=== PATIENT | female | born 1955 | race African-American/Black ===

== ENCOUNTER 2018-12-06 13:54 | Inpatient (IN) | payer OTHER, MEDICAID ==
[2018-12-06] MEDS ORDERED: DIAZEPAM 10 MG/2 ML SYR IVP ONE (14:29)
[2018-12-06] MEDS ORDERED: KETOROLAC 15 MG/1 ML SDV IVP ONE (14:29)
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
[2018-12-06 14:42] LABS: PLATELET COUNT 292 10^3/uL (150-400)
[2018-12-06] MEDS ORDERED: HYDROmorphONE/DILAUDID 2 MG/ML INJ IVP ONE ×2 (16:16→18:56)
[2018-12-06] MEDS ORDERED: DEXAMETHASONE 10 MG/ML VIAL IVP ONE (17:19)
--- NOTE | 2018-12-06 18:04 | SOAPPROG ---
SOAP Progress Note Assessment/Plan: Assessment: 62 yo F with back pain, right leg pain, right leg weakness and urinary incontinence. Plan: Full consult dictated MRI lumbar spine with severe T10/11 stenosis and multilevel lumbar stenosis will make her npo at midnight ordering MRI of thoracic spine w/o contrast will discuss with patient in am but she will likely need decompression surgery please call with neuro changes 12/06/18 18:01 Subjective: consult dictated. Objective: Vital Signs Temp Pulse Resp BP Pulse Ox 36.8 C 71 16 129/81 H 97 12/06/18 17:39 12/06/18 17:39 12/06/18 17:39 12/06/18 17:39 12/06/18 17:39 AAOX4, +FC PERRL, EOMI, no facial droop 5/5 + light touch ICD10 Worksheet Patient Problems: Problems Problem Status Onset Acute back pain with sciatica Acute
[2018-12-06] MEDS ORDERED: ONDANSETRON DISINTEGRATING 4 MG TAB PO PRN (18:56)
--- NOTE | 2018-12-06 18:56 | GCON ---
[f rep st] CONSULTATION NEUROSURGICAL CONSULTATION CHIEF COMPLAINT: Low back pain, leg weakness, and incontinence. HISTORY OF PRESENT ILLNESS: The patient is a 62-year-old female known to our practice for previous cervical and thoracic fusion by Dr. Grimes in approximately 2016. She did have some low back pain and leg symptoms that were previously thought to be related to underlying lumbar stenosis symptoms. Her symptoms were improving with a course of conservative care. Approximately a week ago, she noticed some increased weight gain. This was then associated with worsening low back pain, pain in the right leg, general weakness in the right leg, as well as urinary leakage. She describes when she stands, she feels a fullness in her abdomen and has urinary leakage with some incontinence. She is not having left leg pain. She has tried some pain medications and anti -inflammatory medications with no improvement of her symptoms. PAST MEDICAL HISTORY: 1. Diabetes. 2. Lumbar stenosis. PAST SURGICAL HISTORY: Includes: 1. Previous cervical fusion. 2. Previous thoracic fusion. MEDICATIONS: Prior to admission, please see medication list. ALLERGIES: Sulfa. FAMILY HISTORY: Patient has no family history of spinal problems. SOCIAL HISTORY: The patient has grown children and lives in [place]. She denies smoking or drug use. REVIEW OF SYSTEMS: Negative. PHYSICAL EXAM: GENERAL: Patient is a 62-year-old female lying in the MRI machine, in no apparent distress. HEAD/EARS/NOSE/THROAT: Negative to drainage. EXTREMITIES: [place], warm, and dry. NEUROLOGIC: Patient is awake, alert, oriented x4. Pupils equal, round, reactive to light. Extraocular motions are intact. There is no evidence of facial droop. Tongue and uvula are midline. Spinal accessory muscles are intact. Her motor strength is 5/5 in her arms and legs. Her sensation is grossly intact to light touch in her arms and legs. Deep tendon reflexes are 1/4 in upper extremities, 3+ in patellar and +2/4 in achilles. There is a negative Silke's with no clonus. IMPRESSION: This is a 62-year-old female with low back pain, right lower extremity radicular pain, subjective weakness, and incontinence that may be related to underlying lumbar stenosis. She is currently neurologically intact. PLAN: All the above discussed in detail with the patient. This patient was seen with Dr. Castillo in MRI at [facility]. At this point time , we will have the patient complete the MRI of her lumbar spine without contrast. She will be admitted to the hospitalist overnight and be kept n.p.o. We will review her imaging studies in the morning and determine further recommendations, including whether or not she may require surgical intervention. Please call with any neurological changes. /[id number]/MODL MTDD
[2018-12-06] MEDS ORDERED: PROTOCOL POTASSIUM 1 DOSE MISC PRN (19:05)
[2018-12-06] MEDS ORDERED: POTASSIUM CL 20 MEQ PKT PO ONE (19:05)
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
[2018-12-06] MEDS: ONDANSETRON 4 MG/2 ML VIAL IVP PRN (20:07)
[2018-12-06] MEDS ORDERED: POTASSIUM CL 10 MEQ TAB PO ONE ×2 (22:03→22:15)
[2018-12-06] MEDS: GABAPENTIN 300 MG CAP PO SCH (22:13)
[2018-12-07] MEDS: HYDROmorphONE/DILAUDID 1 MG/ML INJ IVP PRN ×3 (07:22→22:17)
--- NOTE | 2018-12-07 07:54 | SOAPPROG ---
[facility] Progress Note Assessment/Plan: Assessment: 62 yo F with back pain, right leg pain, right leg weakness and urinary incontinence likely from T10/11 stenosis on thoracic MRI, also has stenosis at L2/3, L3/4 Plan: neuro: stable, discussed with patient that she will likely need T10/11 decompression and possible fusion MRI lumbar spine with severe T10/11 stenosis and multilevel lumbar stenosis keep npo for now will discuss with Dr Ochoa timing of surgery please call with neuro changes 12/06/18 18:01 12/07/18 07:52 Subjective: continued back pain and right leg pain. Pain in abdomen when upright. Urinary leakage with walking. Objective: Vital Signs Temp Pulse Resp BP Pulse Ox 36.6 C 80 16 127/72 H 96 12/07/18 03:57 12/07/18 03:57 12/07/18 03:57 12/07/18 03:57 12/07/18 03:57 Laboratory Results 12/07/18 05:10 12/06/18 12/07/18 12/08/18 05:59 05:59 05:59 Intake Total 300 Balance 300 AAOx4, + FC PERRL, EOMI, no facial droop 5/5 + light touch ICD10 Worksheet Patient Problems: Problems Problem Status Onset Acute back pain with sciatica Acute
[2018-12-07] MEDS: LISINOPRIL 20 MG TAB PO SCH (08:14)
[2018-12-07] MEDS: GABAPENTIN 300 MG CAP PO SCH ×2 (08:14→21:54)
[2018-12-07] MEDS: ATORVASTATIN CALCIUM 10 MG TAB PO SCH (08:15)
[2018-12-07] MEDS: CHLORTHALIDONE 25 MG TAB PO SCH (08:15)
[2018-12-07] MEDS: DIAZEPAM 5 MG TAB PO PRN (08:21)
[2018-12-07] MEDS: OXYCODONE/APAP 5/325 TAB PO PRN ×2 (08:21→18:00)
[2018-12-07] MEDS ORDERED: FAMOTIDINE 20 MG TAB PO PRN (09:00)
[2018-12-07] MEDS ORDERED: D5W 1,000 ML IV SCH (10:45)
--- NOTE | 2018-12-07 11:06 | ASMTCMCOM ---
CM Note CM Note Notes: Reviewed chart, pt admitted for severe lower back pain. She has a hx of chronic back pain and multiple surgeries. Pt is normally quite active despite this, clocking 6 thousand steps a day and going to [facility]. She is scheduled for surgery today, PT/OT birgit pending. DC Plan: TBD Date Signed: 12/07/2018 11:05 AM Electronically Signed By:Vidhya Qureshi RN
--- NOTE | 2018-12-07 11:13 | HOSPPROG ---
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 - Dr Ochoa to perform thoracic spine fusion today or tomorrow - will likely plan a second lumbar fusion in a few months - cont percocet and dilaudid for pain control # DM2 - she is very concerned her glucs will drop while NPO - start D5NS at 50/hr while NPO - holding glimepiride # htn - lisino, chlorthalidone Subjective: stioll with ongoing pain; we dsicussed her diabetes; I saw her with Dr Ochoa Objective: Vital Signs Temp Pulse Resp BP Pulse Ox 36.8 C 66 16 133/80 H 98 12/07/18 08:00 12/07/18 08:00 12/07/18 08:00 12/07/18 08:00 12/07/18 08:00 Laboratory Results 12/07/18 05:10 12/06/18 12/07/18 12/08/18 05:59 05:59 05:59 Intake Total 300 Balance 300 chart reviewed MRIs personally reviewed and discussed with Dr Ochoa - Physical Exam Constitutional: no apparent distress, appears nourished Cardiovascular: regular rate and rhythym, no murmur, rub, or gallop Respiratory: no respiratory distress, no rales or rhonchi, clear to auscultation Gastrointestinal: soft, non-tender abdomen, No guarding, No rebound, No distension ICD10 Worksheet Patient Problems: Problems Problem Status Onset Acute back pain with sciatica Acute
--- NOTE | 2018-12-07 11:36 | PDMN ---
Medical Necessity Medical necessity: [facility] M63 Back Pain, A-1 day; 62 yo w/ acute on chronic back pain w/ worsening BLE weakness, numbness and urinary incontinence. Imaging shows multi levels degenerative disease w/ acute on chronic disc herniations and cord edema/compression in lower thoracic spine. Neurosurg consult. PT/OT. Plan for thoracic spine fusion next 24 hours. IV dilaudid for pain control. Meets [facility] criteria for back pain w/ progressive or severe neurologic deficit, severe pain and immediate inpt surgery. Hx DM2, HTN, HLD, multi spinal surgeries
--- NOTE | 2018-12-07 11:39 | ASMTCMCOM ---
CM Note CM Note Notes: Met with pt, he has been given resources but not interested in any treatment. CM made an appointment at the [facility] next Wednesday at 10am for pt follow up. DC Plan: Independent Date Signed: 12/07/2018 11:37 AM Electronically Signed By:Vidhya Qureshi RN
[2018-12-07] MEDS ORDERED: ceFAZolin 2 GM/DEXTROSE 100 ML IV ONE ×2 (12:51→16:00)
[2018-12-07] MEDS ORDERED: NS 500 ML IV ONE (12:51)
[2018-12-07] MEDS ORDERED: morphINE PF 0.2 MG in SYRINGE INTRATHECAL 1 SYR IT ONE ×2 (12:51→17:00)
[2018-12-07] MEDS ORDERED: fentaNYL 50 MCG in SYRINGE INTRATHECAL 1 SYR IT ONE ×2 (12:51→17:00)
[2018-12-07] MEDS ORDERED: TRANEXAMIC ACID 1,000 MG in NS 100 ML IV ONE ×2 (12:51→17:00)
[2018-12-07] MEDS ORDERED: GABAPENTIN 300 MG CAP PO ONE ×2 (12:51→17:00)
[2018-12-07] MEDS ORDERED: ACETAMINOPHEN 500 MG TAB PO ONE ×2 (12:51→17:00)
[2018-12-07] MEDS: NS 1,000 ML IV SCH (21:56)
[2018-12-07] MEDS: BACLOFEN 10 MG TAB PO PRN (22:06)
[2018-12-08] MEDS ORDERED: POTASSIUM CL 10 MEQ TAB PO ONE ×2 (01:31→08:52)
[2018-12-08] MEDS: HYDROmorphONE/DILAUDID 1 MG/ML INJ IVP PRN ×5 (03:56→20:50)
--- NOTE | 2018-12-08 07:21 | PDHPUP ---
History & Physical Update H&P update statement: This history and physical update is based on an assessment of the patient which was completed after admission or registration (within 24 hours), but prior to the surgery/procedure. H&P update: H&P reviewed & patient examined, changes noted (will order cxr to ensure no pna prior to surgery today given chest congestion and cough)
--- NOTE | 2018-12-08 07:23 | NEUSURGPN ---
Assessment/Plan: Assessment: 62 yo F with back pain, right leg pain, right leg weakness and urinary incontinence likely from T10/11 stenosis on thoracic MRI, also has stenosis at L2/3, L3/4 Plan: neuro: stable, discussed with patient that she needs T10/11 decompression and possible fusion (exploration with removal of hardware T5-T9; T8-12 PSF with interbody cage at T10/T11 and T11/T12). Consents signed yesterday and on the chart MRI lumbar spine with severe T10/11 stenosis and multilevel lumbar stenosis keep npo for now CXR pending given patient complaints of cough and chest congestion, no fever reported please call with neuro changes Subjective: cough and chest congestion, no fever reported Objective: NAD A&Ox3 MAEx4 5/5 and equal in BLE Sensation intact to LT - Physician Discussed Patient with : [facility] Physical Exam - Vitals, I&O, Labs I and O 12/07/18 12/08/18 12/09/18 05:59 05:59 05:59 Intake Total 300 1300 Output Total 300 Balance 300 1300 -300 Weight 90.71 kg 90.71 kg Intake: Oral (ml) 300 550 IV Infused (ml) 750 Ns 1,000 ml @ 100 mls/hr 750 IV CONT HUE Rx#: [id number] Output: Urine (ml) 300 Toilet 300 Other: Intake Quantity Yes Sufficient Number of Voids Incontinence 1 Toilet 2 2 1 Vital Signs Temp Pulse Resp BP Pulse Ox 36.6 C 64 18 105/66 90 L 12/08/18 04:00 12/08/18 04:00 12/08/18 04:00 12/08/18 04:00 12/08/18 04:00 Laboratory Results 12/08/18 04:23 ICD10 Worksheet Patient Problems: Problems Problem Status Onset Acute back pain with sciatica Acute
[2018-12-08] MEDS: NS 1,000 ML IV SCH ×2 (08:40→20:16)
[2018-12-08] MEDS: CHLORTHALIDONE 25 MG TAB PO SCH (08:41)
[2018-12-08] MEDS: ATORVASTATIN CALCIUM 10 MG TAB PO SCH (08:41)
[2018-12-08] MEDS: LISINOPRIL 20 MG TAB PO SCH (08:41)
[2018-12-08] MEDS: GABAPENTIN 300 MG CAP PO SCH ×3 (09:20→23:39)
--- NOTE | 2018-12-08 10:10 | HOSPPROG ---
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 - Dr Ochoa to perform thoracic spine fusion today - will likely plan a second lumbar fusion in a few months - cont percocet and dilaudid for pain control # DM2 - holding glimepiride today # htn - lisino, chlorthalidone # cough/chest congestion - no pna on CXR - start mucinex, will need IS post-op Subjective: c/o chest congestion Objective: Vital Signs Temp Pulse Resp BP Pulse Ox 36.3 C 67 14 110/65 98 12/08/18 07:47 12/08/18 07:47 12/08/18 07:47 12/08/18 08:41 12/08/18 07:47 Laboratory Results 12/08/18 04:23 12/07/18 12/08/18 12/09/18 05:59 05:59 05:59 Intake Total 300 1300 Output Total 300 Balance 300 1300 -300 chart reviewed CXR personally reviewed - Physical Exam Constitutional: no apparent distress, appears nourished Cardiovascular: regular rate and rhythym, no murmur, rub, or gallop Respiratory: no respiratory distress, no rales or rhonchi, clear to auscultation Gastrointestinal: soft, non-tender abdomen, no palpable masses, No guarding, No rebound, No distension ICD10 Worksheet Patient Problems: Problems Problem Status Onset Acute back pain with sciatica Acute
[2018-12-08] MEDS: guaiFENesin 600 MG TAB.ER PO SCH ×2 (10:43→21:40)
[2018-12-08] MEDS ORDERED: THROMBIN (BOVINE) 5,000 UNIT VIAL TP ONE (11:00)
[2018-12-08] MEDS ORDERED: CITRATE DEXTROSE SOLN 500 ML BAG ONE (11:00)
[2018-12-08] MEDS ORDERED: CHLORHEXIDINE GLUC HIBICLENS 118 ML BTL TP ONE (11:00)
[2018-12-08] MEDS ORDERED: BUPIVACAINE/EPI 0.25% 30 ML SDV ONE ×2 (11:01→16:20)
[2018-12-08] MEDS ORDERED: BACITRACIN 50,000 UNITS/10 ML SYR IRR ONE (11:01)
[2018-12-08] MEDS ORDERED: LR 1,000 ML IV ONE (11:47)
[2018-12-08] MEDS ORDERED: CEFAZOLIN 2 GM/DEXTROSE/100 ML BAG IV ONE (11:55)
--- NOTE | 2018-12-08 11:56 | PDANEPAE ---
ANE History of Present Illness T10-12 TLIF, T5-9 hardware removal. ANE Past Medical History - Cardiovascular History Hx Hypertension: Yes Hx Arrhythmias: No Hx Chest Pain: No Hx Coronary Artery / Peripheral Vascular Disease: No Hx CHF / Valvular Disease: No Hx Palpitations: No Cardiovascular History Comment: HPL - Pulmonary History Hx COPD: No Hx Asthma/Reactive Airway Disease: No Hx Recent Upper Respiratory Infection: Yes Hx Oxygen in Use at Home: No Hx Sleep Apnea: No Sleep Apnea Screening Result - Last Documented: Positive Pulmonary History Comment: Presently with cough and wheezing, CXR today with peribronchial thickening. Rx with Albuterol, with reported improvement. - Neurologic History Hx Cerebrovascular Accident: No Hx Seizures: No Hx Dementia: No Neurologic History Comment: Chronic low back muscle spasms, numbness in B legs - Endocrine History Hx Diabetes: Yes Hypothyroid: Yes Hyperthyroid: No Obesity: moderate - Renal History Hx Renal Disorders: No - Liver History Hx Hepatic Disorders: No - Neurological & Psychiatric Hx Hx Neurological and Psychiatric Disorders: No - Other Health History Other Health History: anemia - Chronic Pain History Chronic Pain: Yes (hips pelvic pain, on opioids for 5 years.) - Surgical History Prior Surgeries: s/p cervical, thoracic surgery ANE Review of Systems Review of Systems: - Exercise capacity Exercise capacity: limited by disability (for about 2 weeks) ANE Patient History - Allergies Allergies/Adverse Reactions: adhesive tape Allergy (Verified 12/08/18 11:33) Rash Sulfa (Sulfonamide Antibiotics) Allergy (Verified 12/08/18 11:33) Rash - Home Medications Home Medications: Lisinopril [Zestril 20 mg (*)] 20 mg PO DAILY 09/03/14 [Last Taken 12/06/18] Ranitidine HCl 150 mg PO DAILY PRN 09/03/14 [Last Taken Unknown] Atorvastatin Calcium [Lipitor 10 mg (*)] 10 mg PO DAILY 12/06/18 [Last Taken ] Baclofen [Baclofen 10 mg (*)] 10 mg PO TID PRN 12/06/18 [Last Taken Unknown] Chlorthalidone [Chlorthalidone 25 mg (*)] 12.5 mg PO DAILY 12/06/18 [Last Taken 12/06/18] Diazepam [Valium 10 MG (*)] 10 mg PO DAILY PRN 12/06/18 [Last Taken Unknown] Glimepiride [Amaryl 1 MG (*)] 1 mg PO MOWEFR 12/06/18 [Last Taken 12/05/18] Oxycodone HCl/Acetaminophen [Oxycodon-Acetaminophen 7.5-325] 0.5 each PO Q6- 8PRN PRN 12/06/18 [Last Taken Unknown] - NPO status NPO Since - Liquids (Date): 12/07/18 NPO Since - Liquids (Time): 00:00 NPO Since - Solids (Date): 12/07/18 NPO Since - Solids (Time): 00:00 - Anes Hx Anes Hx: no prior problems - Smoking Hx Smoking Status: Never smoked - Alcohol Use Alcohol Use: None - Family Anes Hx Family Anes Hx: none ANE Labs/Vital Signs - Labs Result Diagrams: 12/06/18 15:19 12/08/18 04:23 - Vital Signs Blood Pressure: 120/70 Heart Rate: 80 Respiratory Rate: 14 O2 Sat (%): 96 Height: 160.02 cm Weight: 90.71 kg ANE Physical Exam - Airway Neck exam: decreased ROM Mallampati Score: Class 2 Mouth exam: normal dental/mouth exam - Pulmonary Pulmonary: clear to auscultation - Cardiovascular Cardiovascular: regular rate and rhythym - ASA Status ASA Status: III ANE Anesthesia Plan Anesthesia Plan: general endotracheal anesthesia Lines/Monitors: arterial line
[2018-12-08] MEDS ORDERED: ALBUTEROL 3 ML DEYVIAL ONE (12:24)
[2018-12-08] MEDS ORDERED: MIDAZOLAM 2 MG/2 ML VIAL IVP ONE (12:47)
[2018-12-08] MEDS ORDERED: fentaNYL 250 MCG/5 ML INJ ONE (12:59)
[2018-12-08] MEDS ORDERED: KETAMINE 200 MG/20 ML VIAL ONE (12:59)
[2018-12-08] MEDS ORDERED: ALBUTEROL 3 ML DEYVIAL IH ONE (13:00)
[2018-12-08] MEDS ORDERED: ROCURONIUM 50 MG/5 ML VIAL ONE (13:00)
[2018-12-08] MEDS ORDERED: PROPOFOL/EMULSION 500 MG/50 ML BOTTLE IV ONE ×2 (13:00→14:36)
[2018-12-08] MEDS ORDERED: DEXAMETHASONE 4 MG/ML VIAL ONE (13:00)
[2018-12-08] MEDS ORDERED: PHENYLEPHRINE HCL 100 MCG/ML SYR ONE (14:02)
[2018-12-08] MEDS ORDERED: ePHEDrine SULFATE 25 MG/5 ML SYR ONE (14:07)
[2018-12-08] MEDS ORDERED: PHENYLEPHRINE 10 MG/ML SDV ONE (14:12)
[2018-12-08] MEDS ORDERED: ALBUTEROL HFA ANES ONLY 200 PUFFS/8.5 GM MDI IH ONE (15:29)
[2018-12-08] MEDS ORDERED: morphINE PF 0.2 MG in SYRINGE INTRATHECAL 1 SYR IT ONE (16:00)
[2018-12-08] MEDS ORDERED: fentaNYL 50 MCG in SYRINGE INTRATHECAL 1 SYR IT ONE (16:00)
[2018-12-08] MEDS ORDERED: fentaNYL 100 MCG/2 ML INJ ONE ×3 (16:40→19:19)
[2018-12-08] MEDS ORDERED: ceFAZolin 1 GM VIAL ONE (17:06)
[2018-12-08] MEDS ORDERED: PROPOFOL 200 MG/20 ML VIAL ONE (17:23)
[2018-12-08] MEDS ORDERED: HYDROmorphONE/DILAUDID 2 MG/ML INJ ONE (17:59)
[2018-12-08] MEDS ORDERED: ONDANSETRON 4 MG/2 ML VIAL ONE (18:02)
[2018-12-08] MEDS ORDERED: ALBUTEROL 3 ML DEYVIAL IH PRN (18:17)
[2018-12-08] MEDS ORDERED: NALOXONE HCL 0.4 MG/ML INJ IVP PRN (18:17)
[2018-12-08] MEDS ORDERED: fentaNYL 100 MCG/2 ML INJ IVP PRN (18:17)
[2018-12-08] MEDS ORDERED: BISACODYL 10 MG SUPP PR PRN (18:35)
[2018-12-08] MEDS ORDERED: LACTULOSE 20 GM/30 ML UDCUP PO PRN (18:35)
[2018-12-08] MEDS ORDERED: MAGNESIUM HYDROXIDE 30 ML UDCUP PO PRN (18:35)
[2018-12-08] MEDS ORDERED: PROMETHAZINE HCL 25 MG/ML INJ ONE ×2 (18:44→19:14)
--- NOTE | 2018-12-08 18:44 | SOAPPROG ---
[facility]EX[facility] Progress Note Assessment/Plan: Assessment: 62 yo F sp T5-9 hardware removal, T8-12 fusion with T10/11 TLIF Plan: neuro: stable to SDU Franck x 1 x-rays in am TLSO brace to be fit tomorrow, Damien Ferguson will fit brace please call with neuro changes 12/06/18 18:01 12/07/18 07:52 12/08/18 18:42 Subjective: + back pain, no leg pain Objective: Vital Signs Temp Pulse Resp BP Pulse Ox 37.3 C 80 14 120/70 96 12/08/18 11:34 12/08/18 14:57 12/08/18 14:57 12/08/18 14:57 12/08/18 14:57 Laboratory Results 12/08/18 04:23 12/07/18 12/08/18 12/09/18 05:59 05:59 05:59 Intake Total 300 1300 Output Total 300 Balance 300 1300 -300 somnolent PERRL, EOMI WAQAS x 4 + light touch ICD10 Worksheet Patient Problems: Problems Problem Status Onset Acute back pain with sciatica Acute
[2018-12-08] MEDS ORDERED: NS 1,000 ML IV SCH (18:45)
[2018-12-08] MEDS: PROMETHAZINE HCL 25 MG/ML INJ IVP PRN ×2 (18:47→19:15)
[2018-12-08] MEDS ORDERED: DIAZEPAM 10 MG/2 ML SYR ONE ×2 (18:51→19:16)
[2018-12-08] MEDS ORDERED: DIAZEPAM 10 MG/2 ML SYR IVP ONE ×2 (18:52→19:30)
--- NOTE | 2018-12-08 18:56 | POSTANESTH ---
Post Anesthetic Evaluation Cardiovascular Status: Similar to Pre-Op Cond Respiratory Status: Similar to Pre-op Cond. Level of Consciousness/Mental Status: Can Participate in Eval Pain Control: Adequate, Prn Tx Ordered Nausea/Vomiting Control: Adequate, Prn Tx Ordered Complications Possibly Related to Anesthesia: None Noted
--- NOTE | 2018-12-08 19:11 | GOP ---
[f rep st] OPERATIVE REPORT DATE OF OPERATION: 12/08/2018 SURGEON: Hussain Grimes MD NEUROSURGEON: Hussain Grimes MD INSEAMER: Phani Clemons PA-C ANESTHESIA: General endotracheal. PREOPERATIVE DIAGNOSIS: Severe T10-T11 spinal stenosis and spinal cord compression with multilevel d egenerative joint disease, intractable back pain, and progressive myelopathy. History of prior multi level thoracic fusion from T5 to T9. POSTOPERATIVE DIAGNOSIS: Severe T10-T11 spinal stenosis and spinal cord compression with multilevel degenerative joint disease, intractable back pain, and progressive myelopathy. History of prior mult ilevel thoracic fusion from T5 to T9. PROCEDURE PERFORMED: Removal of T5 through T9 posterior segmental (pedicle screws) and placement of screws from T8 through T12 with a T8 through T12 posterolateral fusion. Multilevel laminectomy for d ecompression of thoracic spinal cord. T10-11 posterior/transforaminal lumbar interbody fusion with 2 structural PEEK interbody spacers, local autograft and bone morphogenic protein. Use of intraoperat navya microscopy and fluoroscopy. FINDINGS: ESTIMATED BLOOD LOSS: 400 cc. INDICATIONS: The patient is a 62-year-old obese woman who has a history of a T5 through T9 instrumen yo fusion with chronic pain on narcotics who has progressive myelopathic symptoms and intractable ba ck pain, secondary to multilevel degenerative joint disease, severe spinal stenosis and spinal cord c ompression at the T10-11 level. She presents now for removal of prior instrumentation and extension down to T12 from T8. DESCRIPTION OF PROCEDURE: After informed consent was obtained, patient was taken to the operating ro om and placed in the prone position on the Brice table. The thoracic, lumbosacral areas were prepp ed and draped in sterile fashion. After fluoroscopic localization of the correct levels, the subcuta neous and intramuscular tissues were infiltrated with local anesthesia. A midline linear incision was then created from approximately T5 through T12. This was carried down to the fascial layer, which was incised using monopolar electrocautery and carried down in a subperio steal plane along the spinous processes and laminae bilaterally where there was lamina. There were a reas where the spinous process had been removed and the anatomy was very distorted. This required me ticulous dissection in order to carefully identify the prior hardware, which was then removed in mohit dard fashion from T5 through T9 and the holes stuffed with Gelfoam bullets. Following this, the micr oscope was brought in and a T10-11 laminectomy was performed for decompression of the thoracic spinal cord. There was quite a bit of scar tissue from the prior surgery and it took approximately 3 to 4 times as long to perform this laminectomy as it would normally due to the scar tissue and obesity cau sing a significant depth of the wound and increased bleeding. Following an excellent decompression of the thoracic cord, the O-arm neuronavigational system was bro ught in and 3-D reconstructed images obtained. Using computer volumetric and stereotactic navigation , pedicle screws were placed from T8 through T12. Each individual screw was tested neurophysiologica lly with monopolar electrostimulation and interpretation by the surgeon. Following this, short rods were placed across the T10-11 level and a complete diskectomy was performed under distraction using h igh-power microscopy. The endplates were prepared and appropriately sized structural PEEK interbody spacers, along with local autograft and bone morphogenic protein was placed in the interspace for T10 -11 posterior/transforaminal lumbar interbody fusion. The small screw and shona system was then remove d and longer rods extending from T8 to T12 were placed and the remaining lamina, facet joints, and tr ansverse processes were extensively decorticated from T8 through T12, and the local autograft, along with bone morphogenic protein was placed out laterally for posterolateral fusion from T8 through T12. After meticulous hemostasis was achieved and copious irrigation with antibiotic solution, a drain was placed. The biplanar fluoroscopy was utilized to verify good position of all screws and rods, and t he wound was closed in a layered fashion using interrupted Vicryl sutures, followed by Steri-Strips o n the skin. COMPLICATIONS: None. DISPOSITION: The patient is currently in the process of being repositioned for extubation. /[id number]/MODL
[2018-12-08] MEDS ORDERED: HYDROmorphONE/DILAUDID 1 MG/ML INJ ONE (19:20)
[2018-12-08] MEDS: ONDANSETRON 4 MG/2 ML VIAL IVP PRN (20:16)
[2018-12-08] MEDS: ACETAMINOPHEN 500 MG TAB PO SCH ×2 (21:40→23:40)
[2018-12-08] MEDS: SENNOSIDES/DOCUSATE SODIUM TAB PO SCH ×2 (21:40→23:38)
[2018-12-08] MEDS: POLYETHYLENE GLYCOL 3350 17 GM PKT PO SCH (21:40)
[2018-12-08] MEDS: oxyCODONE IR 5 MG TAB PO PRN (22:38)
[2018-12-09] MEDS: METHOCARBAMOL 750 MG TAB PO PRN ×2 (00:02→13:37)
[2018-12-09] MEDS: HYDROmorphONE/DILAUDID 1 MG/ML INJ IVP PRN ×5 (01:06→23:03)
[2018-12-09] MEDS: ceFAZolin 2 GM/DEXTROSE 100 ML IV SCH ×2 (01:13→09:12)
[2018-12-09] MEDS: oxyCODONE IR 5 MG TAB PO PRN ×4 (05:45→21:24)
[2018-12-09] MEDS: ACETAMINOPHEN 500 MG TAB PO SCH ×3 (05:45→21:21)
[2018-12-09 06:18] LABS: PLATELET COUNT 228 10^3/uL (150-400)
[2018-12-09] MEDS: NS 1,000 ML IV SCH (06:35)
--- NOTE | 2018-12-09 08:00 | SOAPPROG ---
SOAP Progress Note Assessment/Plan: Assessment: 62 yo F sp T5-9 hardware removal, T8-12 fusion with T10/11 TLIF Doing well with improved sensation in her right leg. Pain well controlled Plan: CPM in SDU Continue FAITH but remove tape and add opsite instead to hold FAITH drain tubing in place since pt is allergic to tape PT/OT as tolerated brace to be fit today 12/09/18 07:57 Subjective: Lying in bed, comfortable. No overnight issues States her right leg sensation is back to normal. Denies new numbness tingling or weakness Objective: Vital Signs Temp Pulse Resp BP Pulse Ox 36.9 C 77 18 86/54 L 97 12/09/18 07:37 12/09/18 07:37 12/09/18 07:37 12/09/18 07:37 12/09/18 07:37 Laboratory Results 12/09/18 05:35 12/09/18 05:35 12/08/18 12/09/18 12/10/18 05:59 05:59 05:59 Intake Total 1300 3508 Output Total 2945 Balance 1300 563 Neuro: HOLLINGSWORTH, sens +LT FC x 4 Dressing: CDI FAITH:[id number] ICD10 Worksheet Patient Problems: Problems Problem Status Onset Acute back pain with sciatica Acute
[2018-12-09] MEDS ORDERED: POTASSIUM CL 10 MEQ TAB PO ONE (08:22)
[2018-12-09] MEDS: SENNOSIDES/DOCUSATE SODIUM TAB PO SCH ×2 (09:10→21:23)
[2018-12-09] MEDS: GABAPENTIN 300 MG CAP PO SCH ×2 (09:11→21:22)
[2018-12-09] MEDS: guaiFENesin 600 MG TAB.ER PO SCH ×2 (09:12→21:23)
[2018-12-09] MEDS: ATORVASTATIN CALCIUM 10 MG TAB PO SCH (09:12)
[2018-12-09] MEDS: POLYETHYLENE GLYCOL 3350 17 GM PKT PO SCH ×3 (09:12→21:24)
[2018-12-09] MEDS: DIAZEPAM 5 MG TAB PO PRN (09:32)
[2018-12-09] MEDS: LISINOPRIL 20 MG TAB PO SCH (09:34)
[2018-12-09] MEDS: CHLORTHALIDONE 25 MG TAB PO SCH (09:35)
--- NOTE | 2018-12-09 12:00 | ASMTCMCOM ---
CM Note CM Note Notes: Spoke with patient today and she states she is interested in going to SNF rehab if she is needing it at D/C. She is talking with her daughter today about the last program she went to before she gives us her choices for referrals. PT has been informed she is interested in services. CM following. Date Signed: 12/09/2018 11:59 AM Electronically Signed By:Gail Chapman LCSW
--- NOTE | 2018-12-09 13:53 | HOSPPROG ---
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 Reports leg numbness improved. Pain controlled with current therapies. Mild cough but no other complaints. Objective: Vital Signs Temp Pulse Resp BP Pulse Ox 36.9 C 83 18 114/62 94 12/09/18 12:02 12/09/18 12:02 12/09/18 12:02 12/09/18 12:02 12/09/18 12:02 Laboratory Results 12/09/18 05:35 12/09/18 05:35 12/08/18 12/09/18 12/10/18 05:59 05:59 05:59 Intake Total 1300 3508 Output Total 2945 Balance 1300 563 - Physical Exam Constitutional: no apparent distress, appears nourished, not in pain Eyes: PERRL, anicteric sclera, EOMI Ears, Nose, Mouth, Throat: moist mucous membranes, hearing normal, ears appear normal, no oral mucosal ulcers Cardiovascular: regular rate and rhythym, no murmur, rub, or gallop, No edema Respiratory: no respiratory distress, reduced air movement (bases) Gastrointestinal: normoactive bowel sounds, soft, non-tender abdomen, no palpable masses Genitourinary: no bladder fullness, no bladder tenderness, no renal bruits Skin: other (did not visualize spinal incisions) Neurologic: AAOx3 Psychiatric: interacting appropriately ICD10 Worksheet Patient Problems: Problems Problem Status Onset Acute back pain with sciatica Acute
[2018-12-09] MEDS ORDERED: GLIMEPIRIDE 1 MG TAB PO SCH (16:00)
--- NOTE | 2018-12-09 16:55 | GCON ---
[f rep st] CONSULTATION PULMONARY CRITICAL CARE CONSULTATION. DATE OF CONSULTATION: 12/09/2018 REASON FOR CONSULTATION: Intensive care unit evaluation management and medical management following thoracic spine surgery. HISTORY OF PRESENT ILLNESS: The patient is a very pleasant 62-year-old who was admitted on 12/06 with increasing back pain. She has known spinal stenosis, followed by Dr. Grimes. She has had cervical surgery and lumbar surgery in the past. Neurosurgery was consulted. An MRI was done. She was taken to the operating room yesterday. A multilevel laminectomy was done from T5 through T9. Old hardware was removed. New hardware was replaced from T8 through T12. Estimated blood loss was 400 mL. She was returned to the intensive care unit doing well. Since surgery, she has had good control of her pain. She has no complaints. She is relatively mobile, working with physical therapy and can be up without a brace. PAST MEDICAL HISTORY: Remarkable for systemic hypertension, hyperlipidemia, type 2 diabetes, and spinal stenosis in the cervical/thoracic and lumbar areas. MEDICATIONS ON ADMISSION: Lisinopril, chlorthalidone, ranitidine, Lipitor, baclofen, p.r.n. Valium, Amaryl, and oxycodone. SOCIAL HISTORY: The patient is a never smoker. She does not drink. She exercises regularly. FAMILY HISTORY: Noncontributory. REVIEW OF SYSTEMS: A 10-point review of systems was negative, except as mentioned in the HPI. There is no history of heart disease, thromboembolic disease, or other issues. PHYSICAL EXAMINATION: GENERAL: Reveals a very pleasant woman who is sitting up comfortably in bed, eating. VITAL SIGNS: Blood pressure is 110/60, heart rate 80 with sinus rhythm on the monitor. On 2 L saturations are 94%. Rate and respiratory rate 16. She is afebrile. HEENT/NECK: Unremarkable for lymphadenopathy or thyromegaly. There is no jugular venous distention. CHEST: Clear anteriorly. Breath sounds are diminished at the bases. HEART: Regular in rate and rhythm without significant murmur or gallop. ABDOMEN: Soft , nontender. Bowel sounds are present, but diminished. EXTREMITIES: Without edema, cords, or tenderness. NEUROLOGIC: Examination is intact. DATABASE: Laboratory: White blood cell count is 9500, hematocrit 30, platelets are 228,000. Basic metabolic panel is within normal limits, latest glucose 100. Calcium 7.7. ASSESSMENT: 1. Spinal stenosis, status post thoracic surgery with removal and reimplantation of hardware and multilevel laminectomy. The patient reports significantly less pain postoperatively than she had preoperatively. Also, an area of numbness on her right thigh is no longer present. 2. Hypertension. Blood pressures are borderline currently. Lisinopril and chlorthalidone are temporarily being held. 3. Acute blood loss anemia. Hematocrit is stable at approximately 30, down from 37 on admission. This will be followed. 4. Type 2 diabetes. Glucoses are stable. Amaryl can be continued. 5. Prophylaxis: Enoxaparin to be started, continue H2 blockers. PLAN: Please see the problem-specific issues as noted above. The patient will be kept in the intensive care unit on step-down status. Adequate pain control will be continued. Laboratory will be followed. Current medications will be continued. Blood pressure will be followed and her outpatient therapies re- initiated as blood pressure rises. Further plans and recommendations will be made based on her progress over the next 12 to 24 hours. /[id number]/MODL and [id number]/MODL [facility]ITALRegis
[2018-12-09] MEDS: BACLOFEN 10 MG TAB PO PRN (21:23)
[2018-12-10] MEDS: oxyCODONE IR 5 MG TAB PO PRN ×5 (01:58→21:25)
[2018-12-10] MEDS: HYDROmorphONE/DILAUDID 1 MG/ML INJ IVP PRN ×5 (02:41→22:23)
[2018-12-10] MEDS: ACETAMINOPHEN 500 MG TAB PO SCH ×3 (06:11→21:24)
--- NOTE | 2018-12-10 08:10 | SOAPPROG ---
SOAP Progress Note Assessment/Plan: Assessment: 62 yo F sp T5-9 hardware removal, T8-12 fusion with T10/11 TLIF Doing well with improved sensation in her right leg. Pain well controlled B/B control improved Plan: Transfer to floor today. T spine xrays today Continue FAITH PT/OT as tolerated brace to be fit today Subjective: Sitting on commode. Doing great today. No new or worsened issues. She's very happy. Objective: Vital Signs Temp Pulse Resp BP Pulse Ox 37.5 C 86 12 122/73 H 97 12/10/18 07:53 12/10/18 07:53 12/10/18 07:53 12/10/18 07:53 12/10/18 07:53 Laboratory Results 12/10/18 05:14 12/10/18 05:14 12/09/18 12/10/18 12/11/18 05:59 05:59 05:59 Intake Total 3508 1200 Output Total 2945 2040 Balance 563 -840 Neuro: HOLLING[place]ORTH, sens +LT ambulatory w assistance Has improved b/b control Dressing: CDI FAITH; 240 ICD10 Worksheet Patient Problems: Problems Problem Status Onset Acute back pain with sciatica Acute
[2018-12-10] MEDS: DIAZEPAM 5 MG TAB PO PRN (08:38)
[2018-12-10] MEDS: POLYETHYLENE GLYCOL 3350 17 GM PKT PO SCH ×3 (08:38→21:25)
[2018-12-10] MEDS: GABAPENTIN 300 MG CAP PO SCH ×2 (08:39→21:25)
[2018-12-10] MEDS: guaiFENesin 600 MG TAB.ER PO SCH ×2 (08:39→21:25)
[2018-12-10] MEDS: ATORVASTATIN CALCIUM 10 MG TAB PO SCH (08:39)
[2018-12-10] MEDS: ENOXAPARIN 40 MG/0.4 ML SYR SC SCH (08:39)
[2018-12-10] MEDS: SENNOSIDES/DOCUSATE SODIUM TAB PO SCH ×2 (08:39→21:24)
[2018-12-10] MEDS ORDERED: POTASSIUM CL 10 MEQ TAB PO ONE ×2 (08:57→19:35)
[2018-12-10] MEDS: GLIMEPIRIDE 1 MG TAB PO SCH (09:17)
--- NOTE | 2018-12-10 11:07 | HOSPPROG ---
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 About to get up in chair. Objective: Vital Signs Temp Pulse Resp BP Pulse Ox 37.5 C 86 12 122/73 H 97 12/10/18 07:53 12/10/18 07:53 12/10/18 07:53 12/10/18 07:53 12/10/18 07:53 Laboratory Results 12/10/18 05:14 12/10/18 05:14 12/09/18 12/10/18 12/11/18 05:59 05:59 05:59 Intake Total 3508 1200 Output Total 2945 2040 Balance 563 -840 - Physical Exam Constitutional: no apparent distress, appears nourished, not in pain Eyes: PERRL, anicteric sclera, EOMI Ears, Nose, Mouth, Throat: moist mucous membranes, hearing normal, ears appear normal, no oral mucosal ulcers Cardiovascular: regular rate and rhythym, no murmur, rub, or gallop Respiratory: no respiratory distress, reduced air movement (bases) Gastrointestinal: normoactive bowel sounds, soft, non-tender abdomen, no palpable masses Genitourinary: no bladder fullness, no bladder tenderness, no renal bruits Skin: other (did not visualized spinal incisions) Neurologic: AAOx3 Psychiatric: interacting appropriately ICD10 Worksheet Patient Problems: Problems Problem Status Onset Acute back pain with sciatica Acute
[2018-12-10] MEDS: METHOCARBAMOL 750 MG TAB PO PRN (12:27)
[2018-12-11] MEDS: oxyCODONE IR 5 MG TAB PO PRN ×4 (04:18→20:42)
[2018-12-11] MEDS: ACETAMINOPHEN 500 MG TAB PO SCH ×3 (06:37→21:00)
--- NOTE | 2018-12-11 07:54 | SOAPPROG ---
SOAP Progress Note Assessment/Plan: Assessment: 62 yo F sp T5-9 hardware removal, T8-12 fusion with T10/11 TLIF Doing well with improved sensation in her right leg. Pain well controlled B/B control improved Plan: Continue FAITH PT/OT as tolerated DC planning for rehab Subjective: Awake, alert, comfortable. States her right leg is "still doing well." Objective: Vital Signs Temp Pulse Resp BP Pulse Ox 37.1 C 86 16 100/54 L 95 12/11/18 07:35 12/11/18 07:35 12/11/18 07:35 12/11/18 07:35 12/11/18 07:35 Laboratory Results 12/10/18 05:14 12/11/18 04:21 12/10/18 12/11/18 12/12/18 05:59 05:59 05:59 Intake Total 1200 1050 450 Output Total 2040 460 Balance -840 590 450 Dressing: CDI FAITH: 160 Neuro: [place], sens +LT FC x 4 oriented x 4 speech clear Post op xrays show good position of hardware ICD10 Worksheet Patient Problems: Problems Problem Status Onset Acute back pain with sciatica Acute
[2018-12-11] MEDS: GABAPENTIN 300 MG CAP PO SCH ×2 (09:34→20:41)
[2018-12-11] MEDS: SENNOSIDES/DOCUSATE SODIUM TAB PO SCH ×2 (09:35→20:41)
[2018-12-11] MEDS: ATORVASTATIN CALCIUM 10 MG TAB PO SCH (09:35)
[2018-12-11] MEDS: guaiFENesin 600 MG TAB.ER PO SCH ×2 (09:35→20:41)
[2018-12-11] MEDS: ENOXAPARIN 40 MG/0.4 ML SYR SC SCH (09:40)
[2018-12-11] MEDS: POLYETHYLENE GLYCOL 3350 17 GM PKT PO SCH ×3 (09:40→20:59)
[2018-12-11] MEDS: METHOCARBAMOL 750 MG TAB PO PRN ×2 (10:07→17:02)
--- NOTE | 2018-12-11 14:09 | HOSPPROG ---
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 likely to SNF in few days Subjective: Continues to improve. Doesn't think back brace is fitting right, giving her some trouble. Otherwise no compalints. Objective: Vital Signs Temp Pulse Resp BP Pulse Ox 37.1 C 90 16 113/76 92 12/11/18 11:25 12/11/18 11:25 12/11/18 11:25 12/11/18 11:25 12/11/18 11:25 Laboratory Results 12/10/18 05:14 12/11/18 04:21 12/10/18 12/11/18 12/12/18 05:59 05:59 05:59 Intake Total 1200 1050 950 Output Total 2040 460 20 Balance -840 590 930 - Physical Exam Constitutional: no apparent distress Eyes: PERRL, anicteric sclera, EOMI Ears, Nose, Mouth, Throat: moist mucous membranes, hearing normal, ears appear normal, no oral mucosal ulcers Cardiovascular: regular rate and rhythym, no murmur, rub, or gallop, No edema Respiratory: no respiratory distress, no rales or rhonchi, clear to auscultation Gastrointestinal: normoactive bowel sounds, soft, non-tender abdomen, no palpable masses Genitourinary: no bladder fullness, no bladder tenderness, no renal bruits Skin: other (did not visualized spinal incisions) Musculoskeletal: generalized weakness Neurologic: AAOx3 Psychiatric: interacting appropriately ICD10 Worksheet Patient Problems: Problems Problem Status Onset Acute back pain with sciatica Acute
[2018-12-11] MEDS ORDERED: POTASSIUM CL 10 MEQ TAB PO ONE (19:36)
[2018-12-12] MEDS: ACETAMINOPHEN 500 MG TAB PO SCH ×2 (06:08→13:45)
[2018-12-12] MEDS: oxyCODONE IR 5 MG TAB PO PRN ×2 (06:10→13:45)
[2018-12-12 07:42] VITALS: BP 98/82
[2018-12-12] MEDS: POLYETHYLENE GLYCOL 3350 17 GM PKT PO SCH (08:59)
[2018-12-12] MEDS: GLIMEPIRIDE 1 MG TAB PO SCH (09:00)
[2018-12-12] MEDS: guaiFENesin 600 MG TAB.ER PO SCH (09:00)
[2018-12-12] MEDS: GABAPENTIN 300 MG CAP PO SCH (09:00)
[2018-12-12] MEDS: SENNOSIDES/DOCUSATE SODIUM TAB PO SCH (09:00)
[2018-12-12] MEDS: ATORVASTATIN CALCIUM 10 MG TAB PO SCH (09:00)
[2018-12-12] MEDS: METHOCARBAMOL 750 MG TAB PO PRN (09:16)
[2018-12-12] MEDS: ENOXAPARIN 40 MG/0.4 ML SYR SC SCH (10:00)
--- NOTE | 2018-12-12 11:21 | NEUSURGPN ---
Date of Surgery: 12/08/18 Post Op Day: 4 Assessment/Plan: Assessment: 62 yo F sp T5-9 hardware removal, T8-12 fusion with T10/11 TLIF Doing well with improved sensation in her right leg. Plan: -Remove FAITH -Elementary Reading Tutor to adjust brace or fit with different style that covers T6 -Patient with some raised red circular areas on scapular regions, appears to be from EKG lead adhesive -Ok to discharge to rehab today -Discussed patient with Dr Ochoa Please call with questions/concerns Subjective: Brace not fitting well, pain controlled Objective: AxOx4 MAEx4 / BLE Incision/dressing CDI Neuro Check Frequency: per routine Urinary Catheter in Place: No - Physician Discussed Patient with : [facility] Physical Exam - Vitals, I&O, Labs I and O 12/11/18 12/12/18 12/13/18 05:59 05:59 05:59 Intake Total 1050 950 Output Total 460 90 Balance 590 860 Intake: Oral (ml) 1050 850 IV Intake (ml) 100 Output: Urine (ml) 300 Bedside Commode 300 FAITH Drain Output (ml) 160 90 Back Brice Chinchilla 160 90 Other: Intake Quantity Yes Sufficient Number of Voids Bedside Commode 1 Toilet 1 6 1 Vital Signs Temp Pulse Resp BP Pulse Ox 36.6 C 75 18 98/82 H 96 12/12/18 07:42 12/12/18 07:42 12/12/18 07:42 12/12/18 07:42 12/12/18 07:42 Laboratory Results 12/10/18 05:14 12/12/18 04:19 ICD10 Worksheet Patient Problems: Problems Problem Status Onset Acute back pain with sciatica Acute
--- NOTE | 2018-12-12 11:28 | PDIAF ---
- Diagnosis Diagnosis: S/P Thoracic fusion extension Code Status: Full Code - Medication Management Discharge Medications: electronically signed and located in the Home Medication List. PICC Care - Routine: N/A - Orders Services needed: Registered Nurse, Physical Therapy, Occupational Therapy Diet Recommendation: no restrictions on diet Additional Instructions: NO bending or twisting Avoid lifting greater than 10 pounds Wear brace when out of bed Avoid NSAIDs x6 months - Follow Up Care Current Providers and Referrals: Patient,NotPresent [Unknown] - As per Instructions Hussain Grimes MD [Medical Doctor] - follow up in 2 weeks
--- NOTE | 2018-12-12 11:42 | ASMTCMCOM ---
CM Note CM Note Notes: CM met w/ pt and she would like to d/c to a SNF. CM provided pt w/ senior blue book. Pt has chosen [facility] because it is close to her home/her daughter that lives w/ her can visit. CM discussed case w/ Tami [employer]ILDR[employer]OOK AUTHOR. Referral sent and requested that [facility] start getting auth. Tayo will come to refit her. Pt was complaining that the current one was giving her pain. CM to follow. Plan: [facility] Date Signed: 12/12/2018 11:41 AM Electronically Signed By:WON Nieto
--- NOTE | 2018-12-12 13:00 | HOSPPROG ---
Hospitalist Progress Note Assessment/Plan: #Severe multi-level central canal stenosis: -s/p hardware removal, T10-[address] Ochoa 12/08 -pain controlled -needs SNF #DM2: holding meds #HTH: hold LB-I, diuretics with soft BP #Cough: no PNA on CXR #Anemia: post-op, dilutional. H/H stable #DVT: Lovenox #Disp: inpatient admission for PT, monitor BP. DC if BP remains stable Subjective: pain controlled Objective: Vital Signs Temp Pulse Resp BP Pulse Ox 36.6 C 75 18 98/82 H 96 12/12/18 07:42 12/12/18 07:42 12/12/18 07:42 12/12/18 07:42 12/12/18 07:42 Laboratory Results 12/10/18 05:14 12/12/18 04:19 12/11/18 12/12/18 12/13/18 05:59 05:59 05:59 Intake Total 1050 950 Output Total 460 90 Balance 590 860 - Time Spent With Patient Time Spent with Patient: greater than 35 minutes Time Spent with Patient: Greater than 35 minutes spent on this patients care, greater than 50% of time spent counseling, educating, and coordinating care regarding the above mentioned plan. - Physical Exam Constitutional: no apparent distress, obese Eyes: PERRL Ears, Nose, Mouth, Throat: moist mucous membranes Cardiovascular: regular rate and rhythym Gastrointestinal: normoactive bowel sounds Genitourinary: no bladder fullness Skin: warm Musculoskeletal: full muscle strength Neurologic: AAOx3, CN II-XII Intact Psychiatric: interacting appropriately ICD10 Worksheet Patient Problems: Problems Problem Status Onset Acute back pain with sciatica Acute
--- NOTE | 2018-12-12 14:08 | ASMTLACE ---
LACE Length of stay for Answers: 4-6 days current admission Acuity / Level of Answers: Yes Care: Did the patient have an inpatient admission? Comorbidities - select Answers: Diabetes (uncontrolled or all that apply controlled) Opioid dependence / Chronic pain Other Notes: HTN # of Emergency department Answers: 1-2 visits in the last 6 months Score: 14 Date Signed: 12/12/2018 01:55 PM Electronically Signed By:WON Nieto
--- NOTE | 2018-12-12 14:27 | ASMTDCNOTE ---
Case Management Discharge Discharge Order Complete? Answers: Yes Patient to Obtain Answers: Other Notes: [facility] Medications Transportation Arranged Answers: Other Notes: [facility] w/c transport Transport will Pick (Date 12/12/2018 03:00 PM & Time) EMTALA Complete Answers: No Case Management Transport Answers: No Form Complete Faxed Final Orders Answers: Yes Agency/Facility Transfer Answers: Yes Report Printed & Faxed to Receiving Agency Family Notified Answers: No Discharge Comments Notes: CAMPBELL spoke to Marnie at [facility]. She got auth for pt to admit today. DC orders sent. BRIAN Friend will call to give report. CAMPBELL spoke to ESTEFANI Garrett. Dr. Ochoa stopped by to see pt. Pt does not have to wear the brace for now. Tayo will come out to [facility] to get her refitted. The rn community health called [facility] to notify them of this. CM available for changes. Plan: [facility] Date Signed: 12/12/2018 02:11 PM Electronically Signed By:WON Nieto
--- NOTE | 2018-12-12 14:27 | ASDISCHSUM ---
Discharge Information Plan Status:SNF Medically Cleared to Leave:12/12/2018 Discharge Date:12/12/2018 CM D/C Disposition: ADT D/C Disposition:[facility] Facility Projected Discharge Date:12/12/2018 11:00 AM Transportation at D/C: Discharge Delay Reason: Follow-Up Date:12/12/2018 11:00 AM Discharge Slot: Final Diagnosis: Placement Information Referral Type:*Retirement/SNF Referral ID:[id number] Provider Name:[facility] Address 1:[address] Address 2: City:[place] Selection Factors: State:[place] Patient Contact Information Contact Name:JULIUS Relationship:Daughter Address:[address] [place] [address] City:[place] Alternate Phone: State/Zip Code:[place] [address] Email: Financial Information Financial Class:Medicare Advantage Plans Primary Plan Desc:[facility] [employer] Primary Plan Number:[id number] Secondary Plan Desc:[employer] [place] Secondary Plan Number:[id number] Assessment Information LACE LACE Length of stay for Answers: 4-6 days current admission Acuity / Level of Answers: Yes Care: Did the patient have an inpatient admission? Comorbidities - select Answers: Diabetes (uncontrolled or all that apply controlled) Opioid dependence / Chronic pain Other Notes: HTN # of Emergency department Answers: 1-2 visits in the last 6 months Score: 14 Date Signed: 12/12/2018 01:55 PM Electronically Signed By:WON Nieto [facility] CM Progress Note CM Note CM Note Notes: Reviewed chart, pt admitted for severe lower back pain. She has a hx of chronic back pain and multiple surgeries. Pt is normally quite active despite this, clocking 6 thousand steps a day and going to [facility]. She is scheduled for surgery today, PT/OT birgit pending. DC Plan: TBD Date Signed: 12/07/2018 11:05 AM Electronically Signed By:Vidhya Qureshi RN [facility] CM Progress Note CM Note CM Note Notes: Met with pt, he has been given resources but not interested in any treatment. CM made an appointment at the [facility] next Wednesday at 10am for pt follow up. DC Plan: Independent Date Signed: 12/07/2018 11:37 AM Electronically Signed By:Vidhya Qureshi RN [facility] CM Progress Note CM Note CM Note Notes: Spoke with patient today and she states she is interested in going to SNF rehab if she is needing it at D/C. She is talking with her daughter today about the last program she went to before she gives us her choices for referrals. PT has been informed she is interested in services. CM following. Date Signed: 12/09/2018 11:59 AM Electronically Signed By:Gail Chapman LCSW [facility] CM Progress Note CM Note CM Note Notes: CM met w/ pt and she would like to d/c to a SNF. CM provided pt w/ senior blue book. Pt has chosen [facility] because it is close to her home/her daughter that lives w/ her can visit. CM discussed case w/ ESTEFANI Garrett. Referral sent and requested that [facility] start getting auth. [facility] will come to refit her. Pt was complaining that the current one was giving her pain. CM to follow. Plan: [facility] Date Signed: 12/12/2018 11:41 AM Electronically Signed By:WON Nieto Case Management Discharge Plan Note Case Management Discharge Discharge Order Complete? Answers: Yes Patient to Obtain Answers: Other Notes: [facility] Medications Transportation Arranged Answers: Other Notes: [facility] w/c transport Transport will Pick (Date 12/12/2018 03:00 PM & Time) EMTALA Complete Answers: No Case Management Transport Answers: No Form Complete Faxed Final Orders Answers: Yes Agency/Facility Transfer Answers: Yes Report Printed & Faxed to Receiving Agency Family Notified Answers: No Discharge Comments Notes: CAMPBELL spoke to Marnie at [facility]. She got auth for pt to admit today. DC orders sent. Ronna, RN will call to give report. CM spoke to ESTEFANI Garrett. Dr. Gabriela steele by to see pt. Pt does not have to wear the brace for now. Tayo will come out to [facility] to get her refitted. The community service director called [facility] to notify them of this. CM available for changes. Plan: [facility] Date Signed: 12/12/2018 02:11 PM Electronically Signed By:WON Nieto Intervention Information Intervention Type:*Incorrect Registration Date of Service:12/07/2018 10:38 AM Patient Type:Observation Staff Member:Norma Tucker Hours: Discipline: Severity: Comment:
--- NOTE | 2018-12-22 11:32 | GDS ---
[f rep st] DISCHARGE SUMMARY ADMISSION DIAGNOSIS: Leg weakness and incontinence. DISCHARGE DIAGNOSES: 1. Multilevel lumbar stenosis. 2. T10-11 severe spinal stenosis. DISCHARGE DIAGNOSES: Spinal stenosis, status post T5-T9 hardware removal with T8 to T12 fusion and T 10-11 transforaminal lumbar interbody fusion. HISTORY/PHYSICAL: Please see admission history and physical. COURSE: Patient is a 62-year-old female, known to Dr. Grimes from previous spinal instrumenta tion and fusion in the cervical and thoracic spine. She presented with leg weakness, incontinence an d right leg pain. She was admitted by the hospitalist, and she was found to have moderate multilevel spinal stenosis in her lumbar spine, but also severe thoracic stenosis at T10 and 11. She was taken to the operating room on 12/08/2018, where she underwent hardware removal from T5 to T9 followed by T8 to T12 posterior instrumentation and fusion and a T10-11 transforaminal lumbar interbody fusion. There were no intraoperative complications, and she was transferred to the floor. On the floor, she was tolerating a regular diet. Her pain was controlled with p.o. pain medications. A postop x-ray s howed good position of the hardware. She was discharged to [facility] on . Patient was discharged with thoracic fusion instructions and recommended she return for kylah rosurgical followup appointment in 10-14 days. /[id number]/MODL
== END 2018-12-12 15:23 | DRG 455 ==
LOC: EDUNIT# → OBSVTOIN 17:56 → F3N 21:06 → F2N 12-08 18:17 → F3N 12-10 13:45
PROVIDERS: ADMIT Hospitalist; ATTEND Hospitalist
DX: M51.04 Intervertebral disc disorders with myelopathy, thoracic region (principal); M51.14 Intervertebral disc disorders with radiculopathy, thoracic region; M48.04 Spinal stenosis, thoracic region; E87.6 Hypokalemia; E11.9 Type 2 diabetes mellitus without complications; R05 Cough; I10 Essential (primary) hypertension; E78.5 Hyperlipidemia, unspecified; Z98.1 Arthrodesis status
CPT/HCPCS: 96374; 97116-GP; 97161-GP; 97164-GP; 97166-GO; 97530-GP; 97535-GO; C1713; J0690; J1100; J1170; J1650; J1885; J2250; J2274; J2370; J2405; J2550; J2704; J3010; J3360; J7613